=== PATIENT | male | born 1960 | race African-American/Black ===

== ENCOUNTER 2017-07-08 15:12 | Inpatient (IN) | payer MEDICARE, MEDICAID ==
[~2017-07-08] VITALS: Ht 167.6 cm; Wt 71.7 kg
[2017-07-08] MEDS ORDERED: IV NORMAL SALINE 1000 ML BAG IV ONE (15:30)
--- NOTE | 2017-07-08 15:40 | NUR ---
PT IS IN ROOM #2B. DR CÁRDENAS EVALUATED THE PT.
[2017-07-08 15:58] LABS: BASOPHILS % (AUTO) 0.2 % (0.0-2.0); EOSINOPHILS % (AUTO) 0.2 % (0.0-7.0); HEMATOCRIT 34.4 % (36.7-47.1); HEMOGLOBIN 11.2 g/dL (12.5-16.3); LYMPHOCYTES # (AUTO) 0.5 K/uL (20.0-40.0); LYMPHOCYTES % (AUTO) 3.5 % (20.5-51.5); MEAN CORPUSCULAR HEMOGLOBIN 31.3 uug (23.8-33.4); MEAN CORPUSCULAR HGB CONC 33 g/dL (32.5-36.3); MEAN CORPUSCULAR VOLUME 95.9 fL (73.0-96.2); MONOCYTES % (AUTO) 7.8 % (0.0-11.0); NEUTROPHILS # (AUTO) 11.3 K/uL (1.8-8.9); NEUTROPHILS % (AUTO) 88.3 % (38.5-71.5); PLATELET COUNT (AUTO) 197 K/uL (152-348); RED BLOOD CELL COUNT(AUTO) 3.59 MIL/uL (4.06-5.63); WHITE BLOOD COUNT (AUTO) 12.8 K/uL (3.6-10.2)
[2017-07-08 16:00] LABS: POTASSIUM 4.8 mmol/L (3.5-5.1)
[2017-07-08 16:06] LABS: CREATININE 9.8 mg/dL (0.6-1.3)
[2017-07-08 16:10] LABS: BILIRUBIN,DIRECT 0.1 mg/dL (0.0-0.2); BILIRUBIN,TOTAL 0.5 mg/dL (0.1-1.0)
[2017-07-08 16:11] LABS: TOTAL PROTEIN, SERUM 7.6 g/dL (6.4-8.2)
[2017-07-08] MEDS ORDERED: GLIP5TAB13 PO (16:29)
[2017-07-08] MEDS ORDERED: ASPI-605 PO (16:29)
[2017-07-08] MEDS ORDERED: FOLI0.8T23 PO (16:29)
[2017-07-08] MEDS ORDERED: SEVE800T8 PO (16:29)
[2017-07-08] MEDS ORDERED: FOLI1TAB16 PO (16:29)
[2017-07-08] MEDS ORDERED: SIMV20TA6 PO (16:29)
[2017-07-08] MEDS ORDERED: DOXA1TAB2 PO (16:29)
[2017-07-08] MEDS ORDERED: HYDR-4077 PO (16:29)
[2017-07-08] MEDS ORDERED: TAMS0.4C34 PO (16:29)
--- NOTE | 2017-07-08 19:09 | NUR ---
REPORT GIVEN TO EXAMINING OFFICER YOLANDA ANDRADE.
--- NOTE | 2017-07-08 19:40 | NUR ---
Passed report to Bruno GUERREROlinotyper.
--- NOTE | 2017-07-08 20:00 | NUR ---
ADMITTED PATIENT IN TELE UNIT UNDER THE CARE OF DR. HERNANDEZ, BELONGING LIST DONE.
[2017-07-08] MEDS ORDERED: MORPHINE SULFATE 2 MG/1 ML DISP.SYRIN IM PRN (20:30)
[2017-07-08 20:42] VITALS: BP 187/89
[2017-07-08] MEDS ORDERED: HYDROCODONE/APAP 5-325MG TABLET PO PRN (23:30)
[2017-07-08] MEDS ORDERED: TEMAZEPAM 15 MG CAPSULE PO PRN (23:30)
[2017-07-08] MEDS ORDERED: ACETAMINOPHEN 325 MG TABLET PO PRN (23:30)
[2017-07-08] MEDS ORDERED: ONDANSETRON 4 MG/2 ML VIAL IV PRN (23:30)
[2017-07-08] MEDS: CLONIDINE HCL 0.1 MG TABLET PO PRN (23:55)
--- NOTE | 2017-07-08 23:56 | NUR ---
PATIENT BP ELEVATED 179/88, NOTIFY DR. RAY WITH ORDER, PATIENT HAS RAVEN COLOR DARK BROWN IN COLOR, PATIENT DRY SKIN, PROVIDED LOTION TO APPLY TO SKIN.
[2017-07-09 00:06] VITALS: BP 179/88
[2017-07-09 00:40] VITALS: BP 154/67
--- NOTE | 2017-07-09 00:43 | NUR ---
PATIENT BP RECHECK BP 154/67, CATAPRES EFFECTIVE.
[2017-07-09 04:00] VITALS: BP 169/62
--- NOTE | 2017-07-09 05:26 | NUR ---
PATIENT SLEPT MOST OF THE NIGHT, NO SOB NO CHEST PAIN, NO COMPLAIN OF PAIN AT THIS TIME, PATIENT HAS NO FURTHER EPISODES OF BLOODY BM AT THIS TIME. CONT TO MONITOR, RYTHM SINUS RYTHM AT THIS TIME.
[2017-07-09] MEDS: PANTOPRAZOLE SODIUM 40 MG TABLET.DR PO SCH (06:02)
[2017-07-09] MEDS: CLONIDINE HCL 0.1 MG TABLET PO PRN (06:03)
--- NOTE | 2017-07-09 07:05 | NUR ---
RECEIVED REPORT FROM CENTER HUMAN RESOURCES MANAGER NURSE, PATIENT IN BED AWAKE, NO DISTRESS NOTED AT THIS TIME, BED IN LOW POSITION, SIDE RAILS UP X2.
[2017-07-09] MEDS ORDERED: TEMAZEPAM 7.5 MG CAPSULE PO PRN (07:15)
[2017-07-09 07:41] LABS: IRON, SERUM 20 ug/dL (50-175)
[2017-07-09 07:48] LABS: ALANINE AMINOTRANSFERASE 18 U/L (16-63); ALKALINE PHOSPHATASE 57 U/L (50-136); ASPARTATE AMINOTRANSFERASE 8 U/L (15-37); BILIRUBIN,TOTAL 0.4 mg/dL (0.2-1.0); CARBON DIOXIDE 29 mmol/L (21-32); CHLORIDE 103 mmol/L (98-107); CHOLESTEROL 112 mg/dL (<200); GLUCOSE 115 mg/dL (74-106); HDL CHOLESTEROL 45 mg/dL (40-60); MAGNESIUM 2.3 mg/dL (1.8-2.4); PHOSPHOROUS 4.8 mg/dL (2.5-4.9); POTASSIUM 5.4 mmol/L (3.5-5.1); TOTAL PROTEIN, SERUM 6.4 g/dL (6.4-8.2); TRIGLYCERIDES 34 MG/DL (30-150); UREA NITROGEN, BLOOD 61 mg/dL (7-18)
[2017-07-09 07:56] LABS: THYROID STIMULATING HORMONE 1.001 mIU/mL (0.358-3.740)
[2017-07-09 08:01] LABS: BASOPHILS # (AUTO) 0.1 K/uL (0.0-8.0); BASOPHILS % (AUTO) 0.9 % (0.0-2.0); EOSINOPHILS % (AUTO) 0.6 % (0.0-7.0); LYMPHOCYTES # (AUTO) 0.6 K/uL (20.0-40.0); LYMPHOCYTES % (AUTO) 7.9 % (20.5-51.5); MEAN CORPUSCULAR HEMOGLOBIN 32.2 uug (23.8-33.4); MEAN CORPUSCULAR HGB CONC 33 g/dL (32.5-36.3); MEAN CORPUSCULAR VOLUME 96.7 fL (73.0-96.2); MONOCYTES # (AUTO) 0.7 K/uL (2.0-10.0); MONOCYTES % (AUTO) 8.5 % (0.0-11.0); NEUTROPHILS # (AUTO) 6.4 K/uL (1.8-8.9); NEUTROPHILS % (AUTO) 82.1 % (38.5-71.5); PLATELET COUNT (AUTO) 153 K/uL (152-348); RED BLOOD CELL COUNT(AUTO) 3.02 MIL/uL (4.06-5.63)
[2017-07-09 08:04] LABS: HEMATOCRIT 29.2 % (36.7-47.1); HEMOGLOBIN 9.7 g/dL (12.5-16.3); WHITE BLOOD COUNT (AUTO) 7.7 K/uL (3.6-10.2)
[2017-07-09 08:05] LABS: CREATININE 11.2 mg/dL (0.6-1.3)
[2017-07-09] MEDS: SEVELAMER CARBONATE 800 MG TABLET PO SCH ×3 (08:40→17:01)
[2017-07-09] MEDS: FOLIC ACID/VITAMIN B COMP W-C TABLET PO SCH (08:40)
[2017-07-09] MEDS: hydrALAZINE HCL 50 MG TABLET PO SCH ×3 (08:41→16:53)
[2017-07-09] MEDS: DOXAZOSIN 1 MG TABLET PO SCH (08:41)
[2017-07-09] MEDS ORDERED: FOLIC ACID 1 MG TABLET PO SCH (09:00)
[2017-07-09 11:30] VITALS: BP 133/65
[2017-07-09] MEDS ORDERED: DEXTROSE 50% 50 ML DISP.SYRIN IV PRN (12:15)
[2017-07-09] MEDS: BLOOD SUGAR DIAGNOSTIC 1 EACH STRIP VI SCH ×3 (12:17→21:23)
[2017-07-09] MEDS: INSULIN REGULAR, HUMAN 300 UNIT/3 ML VIAL SQ PRN ×2 (12:44→17:07)
[2017-07-09] MEDS ORDERED: GOLYTELY 4000 ML BOTTLE PO ONE (13:00)
[2017-07-09] MEDS ORDERED: MAGNESIUM CITRATE 296 ML BOTTLE PO ONE (13:00)
[2017-07-09] MEDS ORDERED: FLEET ENEMA 133 ML BOTTLE RC PRN (13:00)
--- NOTE | 2017-07-09 14:24 | NUR ---
Patient has been cooperative with care, received dialysis today with 2.5L removed. Patient gave consent for procedures tomorrow at 10am. Patient started the bowel prep with magnesium citrate. Currently patient in bed awake, no distress noted at this time, bed in low position, side rails up x2.
[2017-07-09 15:02] LABS: HEMATOCRIT 31.9 % (36.7-47.1)
--- NOTE | 2017-07-09 15:08 | NUR ---
RECEIVED HAD OFF REPORT FROM SHARIFA GUERRERO. PATIENT IN ROOM, NO ACUTE DISTRESS NOTED. FOR EGD TOMORROW MORNING, BOWEL PREP ONGOING. CONSENT SIGNED WILL CONTINUE TO MONITOR CLOSELY.
[2017-07-09 15:13] LABS: HEMOGLOBIN 10.5 g/dL (12.5-16.3)
[2017-07-09 15:20] VITALS: BP 167/76
[2017-07-09 15:56] LABS: *OCCULT BLOOD STOOL NEGATIVE (NEGATIVE)
--- NOTE | 2017-07-09 17:55 | NUR ---
REMOVED IV SITE ON RIGHT HAND PER PATIENT'S REQUEST SINCE HE SAID THAT IT'S A HINDRANCE WHEN USING THE BATHROOM AND BECOMES UNSANITARY BECAUSE THE CATHETER IS SO CLOSE TO THE EDGE OF THE PALM WHEN HE WASHES HIMSELF. REINSERTED IV ACCESS ON THE RIGHT FOREARM #22, USING ASEPTIC TECHNIQUE, GOOD VENOUS RETURN NOTED, AND WELL TOLERATED BY PATIENT. WILL CONTINUE TO MONITOR CLOSELY.
[2017-07-09 20:00] VITALS: BP 129/62
[2017-07-09] MEDS: SIMVASTATIN 20 MG TABLET PO SCH (21:16)
[2017-07-09] MEDS: TAMSULOSIN HCL 0.4 MG CAP.SR.24H PO SCH (21:17)
[2017-07-10] VITALS: BP 162/77
[2017-07-10 04:00] VITALS: BP 168/80
[2017-07-10] MEDS: BLOOD SUGAR DIAGNOSTIC 1 EACH STRIP VI SCH ×4 (05:53→20:27)
[2017-07-10] MEDS: PANTOPRAZOLE SODIUM 40 MG TABLET.DR PO SCH (05:54)
[2017-07-10] MEDS: CLONIDINE HCL 0.1 MG TABLET PO PRN (06:47)
--- NOTE | 2017-07-10 07:00 | NUR ---
RECEIVED REPORT FROM COLLECTIONS ASSISTANT, PATIENT ON BED ASLEEP, NO ACUTE DISTRESS NOTED. FOR EGD AND COLONOSCOPY TODAY AT 10 AM, CONSENT SIGNED, PRE OP CHECKLIST DONE. PATIENT DONE WITH BOWEL PREP AND IS CLEAR FOR PROCEDURE AND NPO S/P MIDNIGHT. PER [place] RN, PATIENT HAD AN EPISODE OF HYPOGLYCEMIA LAST NIGHT BLOOD SUGAR WAS 63, PATIENT WAS GIVEN HARD CANDY, REASSESSED AFTER BLOOD SUGAR WENT UP TO 98. COMFORT MEASURES PROVIDED. NO COMPLAINTS OF PAIN AND DISCOMFORT. CALL LIGHT WITHIN REACH WILL CONTINUE TO MONITOR CLOSELY.
[2017-07-10 07:19] LABS: HEMATOCRIT 30.2 % (36.7-47.1); HEMOGLOBIN 10.1 g/dL (12.5-16.3)
[2017-07-10] MEDS ORDERED: PROPOFOL 200 MG/20 ML BOTTLE IV ONE (07:29)
[2017-07-10] MEDS ORDERED: IV NORMAL SALINE 1000 ML BAG IV ONE (07:29)
[2017-07-10] MEDS: SEVELAMER CARBONATE 800 MG TABLET PO SCH ×4 (08:00→17:18)
[2017-07-10] MEDS: hydrALAZINE HCL 50 MG TABLET PO SCH ×3 (08:27→16:18)
[2017-07-10] MEDS: FOLIC ACID/VITAMIN B COMP W-C TABLET PO SCH (08:29)
[2017-07-10] MEDS: DOXAZOSIN 1 MG TABLET PO SCH (08:29)
--- NOTE | 2017-07-10 10:20 | NUR ---
PATIENT TAKEN DOWN TO GI LAB FOR EGD/COLONOSCOPY PROCEDURE VIA BED ACCOMPANIED BY OR NURSE. PATIENT IN STABLE CONDITION. CONSENT SIGNED.
[2017-07-10 12:18] VITALS: BP 147/70
--- NOTE | 2017-07-10 12:20 | NUR ---
PATIENT CAME BACK FROM GI LAB, S/P EGD AND COLONOSCOPY. EGD FINDINGS: GASTRITIS AND HIATAL HERNIA COLONOSCOPY FINDINGS:POLYPS. W/ ORDERS TO CONTINUE RENAL DIET, CARRIED OUT. VITALS WNL BP 142/70. WILL CONTINUE TO MONITOR.
[2017-07-10] MEDS: VALSARTAN 160 MG TABLET PO SCH (12:33)
[2017-07-10 15:40] VITALS: BP 130/50
[2017-07-10] MEDS: INSULIN REGULAR, HUMAN 300 UNIT/3 ML VIAL SQ PRN (16:17)
--- NOTE | 2017-07-10 18:19 | NUR ---
PATIENT IN ROOM, NO ACUTE DISTRESS NOTED. NO COMPLAINTS OF PAIN AND DISCOMFORT AT THIS TIME. INDEPENDENT WITH ADLS. COMFORT MEASURES PROVIDED. ALL NEEDS ATTENDED AND ANTICIPATED. CALL LIGHT WITHIN REACH. WILL CONTINUE TO MONITOR CLOSELY
[2017-07-10 20:00] VITALS: BP 134/68
--- NOTE | 2017-07-10 20:00 | NUR ---
PATIENT IS AWAKE SEATED BY THE BED SIDE, HE'S AAOX3. HE DENIES PAIN OR ANY DISTRESS, NO C/O OF DIZZINESS, NO S/S OF BLEEDING OR SOB ON ASSESSMENT. NO CONCERNS AT THIS TIME, WILL CONTINUE TO MONITOR PATIENT
[2017-07-10] MEDS: TAMSULOSIN HCL 0.4 MG CAP.SR.24H PO SCH (20:22)
[2017-07-10] MEDS: SIMVASTATIN 20 MG TABLET PO SCH (20:22)
[2017-07-11 04:00] VITALS: BP 164/78
[2017-07-11] MEDS: CLONIDINE HCL 0.1 MG TABLET PO PRN (05:33)
--- NOTE | 2017-07-11 06:01 | NUR ---
PATIENT SLEPT WELL THROUGH THE SHIFT, HE DENIED PAIN OR ANY DISTRESS. NO C/O OF DIZZINESS/SOB OR ANY EVIDENCE OF BLEEDING NOTED ON THIS SHIFT. PATIENT IN STABLE CONDITION WITH NO CONCERNS AT THIS TIME
[2017-07-11] MEDS: PANTOPRAZOLE SODIUM 40 MG TABLET.DR PO SCH (06:36)
[2017-07-11] MEDS: BLOOD SUGAR DIAGNOSTIC 1 EACH STRIP VI SCH ×4 (06:40→21:33)
--- NOTE | 2017-07-11 07:00 | NUR ---
RECEIVED REPORT FROM MANAGER CARE MANAGEMENT NURSE. PATIENT IN ROOM, AWAKE. NO ACUTE DISTRESS NOTED. IV ACCESS ON RIGHT FOREARM #22 INTACT AND PATENT. LAST BLOOD SUGAR 84, NO COVERAGE NEEDED. TOOK A SHOWER LAST NIGHT. PER MANAGER CARE MANAGEMENT PATIENT HAD ELEVATED BLOOD PRESSURE, CLONIDINE PRN WAS GIVEN. VITAL SIGNS STABLE. COMFORT MEASURES PROVIDED. CALL LIGHT WITHIN REACH WILL CONTINUE TO MONITOR.
[2017-07-11] MEDS: SEVELAMER CARBONATE 800 MG TABLET PO SCH ×3 (07:57→18:06)
[2017-07-11] MEDS: FOLIC ACID/VITAMIN B COMP W-C TABLET PO SCH (08:00)
[2017-07-11] MEDS: VALSARTAN 160 MG TABLET PO SCH (08:00)
[2017-07-11] MEDS: hydrALAZINE HCL 50 MG TABLET PO SCH ×3 (08:01→17:00)
[2017-07-11] MEDS: DOXAZOSIN 1 MG TABLET PO SCH (08:01)
[2017-07-11] MEDS: INSULIN REGULAR, HUMAN 300 UNIT/3 ML VIAL SQ PRN ×2 (11:17→16:46)
[2017-07-11 11:50] VITALS: BP 104/62
[2017-07-11 16:02] VITALS: BP 116/59
--- NOTE | 2017-07-11 17:54 | NUR ---
DID NOT ADMINISTER HYDRALAZINE SINCE PATIENT WILL BE DIALYZED LATER TONIGHT. BP 124/65. WILL CONTINUE TO MONITOR.
--- NOTE | 2017-07-11 18:55 | NUR ---
PATIENT IN STABLE CONDITION NO ACUTE DISTRESS NOTED. DIALYSIS CURRENTLY ONGOING, SENIOR TECHNICAL RECRUITER AT BEDSIDE. NO COMPLAINTS OF PAIN AND DISCOMFORT AT THIS TIME. VITAL SIGNS WNL. ALL NEEDS ATTENDED AND ANTICIPATED. CALL LIGHT WIHTIN REACH WILL CONTINUE TO MONITOR CLOSELY.
--- NOTE | 2017-07-11 19:45 | NUR ---
PT OBSERVED TO BE AAO X 4 AND RECEIVING DIALYSIS AT THIS TIME. NO S/S OF ACUTE DISTRESS NOTED AT THIS TIME. BP WNL. SAFETY PRECAUTIONS PROVIDED. CALL LIGHT WITHIN REACH. WILL CONTINUE TO MONITOR.
[2017-07-11 20:00] VITALS: BP 122/62
[2017-07-11] MEDS: SIMVASTATIN 20 MG TABLET PO SCH (21:33)
[2017-07-11] MEDS: TAMSULOSIN HCL 0.4 MG CAP.SR.24H PO SCH (21:33)
[2017-07-12 05:06] VITALS: BP 133/65
[2017-07-12] MEDS: PANTOPRAZOLE SODIUM 40 MG TABLET.DR PO SCH (06:30)
--- NOTE | 2017-07-12 06:30 | NUR ---
NO DISTRESS NOTED AT THIS TIME. PAIN MANAGEMENT PROVIDED. VITAL SIGNS WNL. SAFETY MEASURES PROVIDED.
[2017-07-12] MEDS: BLOOD SUGAR DIAGNOSTIC 1 EACH STRIP VI SCH ×3 (06:36→16:30)
[2017-07-12 06:48] LABS: BASOPHILS # (AUTO) 0.1 K/uL (0.0-8.0); BASOPHILS % (AUTO) 0.9 % (0.0-2.0); EOSINOPHILS # (AUTO) 0.1 K/uL (0.0-0.7); EOSINOPHILS % (AUTO) 1.4 % (0.0-7.0); HEMATOCRIT 27.7 % (36.7-47.1); HEMOGLOBIN 9.4 g/dL (12.5-16.3); LYMPHOCYTES # (AUTO) 0.5 K/uL (20.0-40.0); LYMPHOCYTES % (AUTO) 8.4 % (20.5-51.5); MEAN CORPUSCULAR HGB CONC 34 g/dL (32.5-36.3); MEAN CORPUSCULAR VOLUME 94.4 fL (73.0-96.2); MONOCYTES # (AUTO) 0.6 K/uL (2.0-10.0); MONOCYTES % (AUTO) 10.1 % (0.0-11.0); NEUTROPHILS # (AUTO) 4.6 K/uL (1.8-8.9); NEUTROPHILS % (AUTO) 79.2 % (38.5-71.5); PLATELET COUNT (AUTO) 152 K/uL (152-348); RED BLOOD CELL COUNT(AUTO) 2.93 MIL/uL (4.06-5.63); WHITE BLOOD COUNT (AUTO) 5.9 K/uL (3.6-10.2)
[2017-07-12 07:04] LABS: BILIRUBIN,TOTAL 0.4 mg/dL (0.2-1.0); MAGNESIUM 2.1 mg/dL (1.8-2.4); PHOSPHOROUS 3.6 mg/dL (2.5-4.9)
[2017-07-12 07:08] LABS: CREATININE 8.3 mg/dL (0.6-1.3)
[2017-07-12] MEDS ORDERED: SIMETHICONE 40 MG/0.6 ML 30 ML BOTTLE MC ONE (07:30)
[2017-07-12] MEDS: SEVELAMER CARBONATE 800 MG TABLET PO SCH ×2 (08:39→13:15)
[2017-07-12] MEDS: DOXAZOSIN 1 MG TABLET PO SCH (08:40)
[2017-07-12] MEDS: hydrALAZINE HCL 50 MG TABLET PO SCH ×3 (08:40→17:00)
[2017-07-12] MEDS: FOLIC ACID/VITAMIN B COMP W-C TABLET PO SCH (08:41)
[2017-07-12] MEDS: VALSARTAN 160 MG TABLET PO SCH (08:41)
[2017-07-12 11:44] VITALS: BP 158/72
[2017-07-12] MEDS ORDERED: PANT40TA2 PO (13:58)
[2017-07-12] MEDS ORDERED: CLON0.1T14 PO (13:58)
[2017-07-12] MEDS ORDERED: VALS160T2 PO (13:58)
[2017-07-12] MEDS ORDERED: ACET325T53 PO (13:58)
[2017-07-12] MEDS ORDERED: TEMA7.5C PO (13:58)
[2017-07-12] MEDS ORDERED: TAMS-3 PO (13:58)
[2017-07-12] MEDS ORDERED: HYDR-3326 PO (13:58)
[2017-07-12] MEDS ORDERED: FERR325T28 PO (14:15)
[2017-07-12 15:47] VITALS: BP 123/63
== END 2017-07-12 18:00 | DRG 393 ==
LOC: ER 15:14 → TELE 17:40 → MED 07-10 17:36
PROVIDERS: ADMIT Internal Medicine; ATTEND Internal Medicine
PROC: 5A1D70Z Performance of Urinary Filtration, Intermittent, Less than 6 Hours Per Day (ICD-10-PCS; 2017-07-09)
PROC: 0DB68ZX Excision of Stomach, Via Natural or Artificial Opening Endoscopic, Diagnostic (ICD-10-PCS; 2017-07-10)
PROC: 0DBK8ZZ Excision of Ascending Colon, Via Natural or Artificial Opening Endoscopic (ICD-10-PCS; principal; 2017-07-10 10:35)
PROC: 0DB58ZX Excision of Esophagus, Via Natural or Artificial Opening Endoscopic, Diagnostic (ICD-10-PCS; 2017-07-10 10:35)
DX: K64.1 Second degree hemorrhoids (principal); N18.6 End stage renal disease; Z76.82 Awaiting organ transplant status; E11.22 Type 2 diabetes mellitus with diabetic chronic kidney disease; D62 Acute posthemorrhagic anemia; E44.1 Mild protein-calorie malnutrition; E83.52 Hypercalcemia; I12.0 Hypertensive chronic kidney disease with stage 5 chronic kidney disease or end stage renal disease; E87.5 Hyperkalemia; K29.70 Gastritis, unspecified, without bleeding; K44.9 Diaphragmatic hernia without obstruction or gangrene; K22.70 Barrett's esophagus without dysplasia; Z99.2 Dependence on renal dialysis; Z79.82 Long term (current) use of aspirin; K57.30 Diverticulosis of large intestine without perforation or abscess without bleeding; N40.0 Benign prostatic hyperplasia without lower urinary tract symptoms; Z79.84 Long term (current) use of oral hypoglycemic drugs; E78.5 Hyperlipidemia, unspecified; Z68.25 Body mass index [BMI] 25.0-25.9, adult; D63.8 Anemia in other chronic diseases classified elsewhere; R53.1 Weakness
CPT/HCPCS: 36415; 70030-TC; 71045; 83550; 83735; 84100; 84443; 85018; 85025; 85730; 86850; 86900; 86901; 88342; 90937; 93005; 93307; A4217; A4663; J1815; J2270; J2405; J3490; J7030

== ENCOUNTER 2018-05-10 23:23 | Inpatient (IN) | payer MEDICARE, MEDICAID ==
[~2018-05-10] VITALS: Ht 167.6 cm; Wt 63.0 kg
[~2018-05-10 23:23] MED LIST: ACET325T53 PO; ASPI-605 PO; CLON0.1T14 PO; DOXA1TAB2 PO; FERR325T28 PO; FOLI0.8T23 PO; FOLI1TAB16 PO; GLIP5TAB13 PO; HYDR-3326 PO; HYDR-4077 PO; PANT40TA2 PO; SEVE800T8 PO; SIMV20TA6 PO; TAMS-3 PO; TEMA7.5C PO; VALS160T2 PO
[2018-05-10] MEDS ORDERED: IV NORMAL SALINE 500 ML BAG IV ONE (23:30)
[2018-05-10 23:38] LABS: BASOPHILS % (AUTO) 0.7 % (0.0-2.0); EOSINOPHILS % (AUTO) 0.3 % (0.0-7.0); HEMATOCRIT 37.7 % (36.7-47.1); HEMOGLOBIN 12.1 g/dL (12.5-16.3); LYMPHOCYTES % (AUTO) 1.8 % (20.5-51.5); MEAN CORPUSCULAR HEMOGLOBIN 30.8 uug (23.8-33.4); MEAN CORPUSCULAR HGB CONC 32 g/dL (32.5-36.3); MEAN CORPUSCULAR VOLUME 95.6 fL (73.0-96.2); MONOCYTES % (AUTO) 9.2 % (0.0-11.0); PLATELET COUNT (AUTO) 170 K/uL (152-348); RED BLOOD CELL COUNT(AUTO) 3.94 MIL/uL (4.06-5.63); WHITE BLOOD COUNT (AUTO) 8.7 K/uL (3.6-10.2)
--- NOTE | 2018-05-10 23:38 | NUR ---
Patient BIB RA100 for c/o BLE weakness /generalized weakness/fatigue x 1 day. No CP/SOB/N/V/D. Patient is AAOx4. Noted with dialysis access to L upper arm.
[2018-05-10 23:39] LABS: BASOPHILS # (AUTO) 0.1 K/uL (0.0-8.0); LYMPHOCYTES # (AUTO) 0.2 K/uL (20.0-40.0); MONOCYTES # (AUTO) 0.8 K/uL (2.0-10.0); NEUTROPHILS # (AUTO) 7.6 K/uL (1.8-8.9)
[2018-05-10] MEDS ORDERED: GABA-532 PO (23:42)
[2018-05-10] MEDS ORDERED: SITA50TA PO (23:42)
[2018-05-10] MEDS ORDERED: HYDR-4077 PO (23:42)
[2018-05-10 23:49] LABS: POTASSIUM 5.6 mmol/L (3.5-5.1)
[2018-05-10 23:50] LABS: CREATININE 11.2 mg/dL (0.6-1.3)
[2018-05-11 00:02] LABS: BILIRUBIN,DIRECT 0.6 mg/dL (0.0-0.2); BILIRUBIN,TOTAL 1.1 mg/dL (0.2-1.0); TOTAL PROTEIN, SERUM 7.8 g/dL (6.4-8.2)
--- NOTE | 2018-05-11 00:38 | NUR ---
2nd Panel call placed to [employer]. Pending call back at this time.
--- NOTE | 2018-05-11 00:47 | NUR ---
Report given to Jeni GUERRERO on Telemetry
--- NOTE | 2018-05-11 00:58 | NUR ---
Pt. admitted to Telemetry , under care of Yeyo Jacob DNP. Belongs List completed
[2018-05-11 01:00] VITALS: BP 128/68
--- NOTE | 2018-05-11 01:10 | NUR ---
Admitted a 58 years old male with diagnosis fo ESRD. Patient AAOX4. In no acute distress. O2 saturation at 80% on RA during admit but denies any SOB. O2 at 2LPM via NC placed and O2 saturation went up to 96%. Denies any pain at this time. IV site on right FA intact and patent. AV shunt on left upper arm/ Patient reported last dialysis done at [facility] in [place] last Friday and took about 1L. NSR on tele at 80/min. Routine admission care done. Plan of care initiated. Safety measure initiated and call sheldon within reach.
[2018-05-11] MEDS ORDERED: Z GUARD REMEDY PASTE 57 GM TUBE TOP PRN ×2 (01:15→10:45)
[2018-05-11] MEDS ORDERED: ACETAMINOPHEN 325 MG TABLET PO PRN (01:15)
[2018-05-11] MEDS: ONDANSETRON 4 MG/2 ML VIAL IV PRN ×3 (01:27→14:55)
[2018-05-11 04:00] VITALS: BP 143/71
--- NOTE | 2018-05-11 06:14 | NUR ---
AAOX4. In no acute distress. O2 at 2LPM via NC placed. Denies any pain or SOB. IV site on right FA intact and patent. NSR on tele at 77/min. No further vomiting reported. Safety measure maintained and call sheldon within reach.
--- NOTE | 2018-05-11 08:30 | NUR ---
SBAR report receive,pt.A/A/OX4 no s/s of distress,denies any pain @ time.
[2018-05-11] MEDS: SEVELAMER CARBONATE 800 MG TABLET PO SCH ×3 (08:48→17:25)
[2018-05-11] MEDS: ASPIRIN EC 81 MG TABLET.DR PO SCH (08:49)
[2018-05-11] MEDS: GABAPENTIN 100 MG CAPSULE PO SCH ×2 (08:49→17:25)
[2018-05-11] MEDS: FOLIC ACID/VITAMIN B COMP W-C TABLET PO SCH (08:49)
[2018-05-11] MEDS: FOLIC ACID 1 MG TABLET PO SCH (08:49)
[2018-05-11] MEDS: hydrALAZINE HCL 50 MG TABLET PO SCH (08:52)
[2018-05-11] MEDS: DOXAZOSIN 1 MG TABLET PO SCH (08:56)
--- NOTE | 2018-05-11 10:05 | NUR ---
Pt. stated that has Hx of IBS- was reported to , pt had 2 liq.bm
[2018-05-11] MEDS ORDERED: ELUX75TA PO (10:21)
[2018-05-11 11:20] VITALS: BP 129/62
--- NOTE | 2018-05-11 14:00 | NUR ---
T.SLEEPING, NO S/S OF DISTRESS.
[2018-05-11 15:20] VITALS: BP 144/64
--- NOTE | 2018-05-11 17:00 | NUR ---
PT.WAS SEEN BY WITH NEW ORDERS.
[2018-05-11 19:00] VITALS: BP 107/49
--- NOTE | 2018-05-11 19:30 | NUR ---
RECEIVED PATIENT IN BED. ALERT AND ORIENTED. PATIENT IS GOING TO RECEIVE DIALYSIS. NO COMPLAINTS OF PAIN. SAFETY MEASURES INITIATED. BED IS LOW AND LOCKED, CALL LIGHT WITHIN REACH. WILL CONTINUE TO MONITOR.
[2018-05-11] MEDS ORDERED: SIMVASTATIN 20 MG TABLET PO SCH (21:00)
[2018-05-11] MEDS: TAMSULOSIN HCL 0.4 MG CAP.SR.24H PO SCH (23:39)
[2018-05-11] MEDS: Z GUARD REMEDY PASTE 57 GM TUBE TOP SCH (23:39)
--- NOTE | 2018-05-11 23:45 | NUR ---
PATIENT COMPLETED DIALYSIS AND HAD AN OUTPUT OF 500cc. WILL CONTINUE TO MONITOR.
[2018-05-12] VITALS: BP 138/67
[2018-05-12 04:00] VITALS: BP 131/56
[2018-05-12 06:33] LABS: BASOPHILS % (AUTO) 0.7 % (0.0-2.0); EOSINOPHILS # (AUTO) 0.4 K/uL (0.0-0.7); EOSINOPHILS % (AUTO) 5.3 % (0.0-7.0); HEMATOCRIT 35.4 % (36.7-47.1); HEMOGLOBIN 11.6 g/dL (12.5-16.3); LYMPHOCYTES # (AUTO) 0.3 K/uL (20.0-40.0); LYMPHOCYTES % (AUTO) 3.8 % (20.5-51.5); MEAN CORPUSCULAR HEMOGLOBIN 31.1 uug (23.8-33.4); MEAN CORPUSCULAR HGB CONC 33 g/dL (32.5-36.3); MEAN CORPUSCULAR VOLUME 95.1 fL (73.0-96.2); MONOCYTES # (AUTO) 0.9 K/uL (2.0-10.0); MONOCYTES % (AUTO) 12.9 % (0.0-11.0); NEUTROPHILS # (AUTO) 5.3 K/uL (1.8-8.9); NEUTROPHILS % (AUTO) 77.3 % (38.5-71.5); PLATELET COUNT (AUTO) 164 K/uL (152-348); RED BLOOD CELL COUNT(AUTO) 3.72 MIL/uL (4.06-5.63); WHITE BLOOD COUNT (AUTO) 6.8 K/uL (3.6-10.2)
[2018-05-12 06:54] LABS: MAGNESIUM 2.2 mg/dL (1.8-2.4); POTASSIUM 4.4 mmol/L (3.5-5.1)
[2018-05-12 06:57] LABS: CREATININE 8.4 mg/dL (0.6-1.3)
[2018-05-12] MEDS: FOLIC ACID/VITAMIN B COMP W-C TABLET PO SCH (08:51)
[2018-05-12] MEDS: FOLIC ACID 1 MG TABLET PO SCH (08:52)
[2018-05-12] MEDS: ASPIRIN EC 81 MG TABLET.DR PO SCH (08:52)
[2018-05-12] MEDS: DOXAZOSIN 1 MG TABLET PO SCH (08:52)
[2018-05-12] MEDS: hydrALAZINE HCL 50 MG TABLET PO SCH (08:52)
[2018-05-12] MEDS: SEVELAMER CARBONATE 800 MG TABLET PO SCH ×3 (08:52→18:04)
[2018-05-12] MEDS: GABAPENTIN 100 MG CAPSULE PO SCH ×2 (08:52→18:05)
[2018-05-12] MEDS: Z GUARD REMEDY PASTE 57 GM TUBE TOP SCH ×2 (08:53→21:31)
--- NOTE | 2018-05-12 10:00 | NUR ---
Pt remains awake,alert,oriented.Denies pain,discomfort.Will continue to monitor.
[2018-05-12 11:26] VITALS: BP 119/51
[2018-05-12] MEDS: METRONIDAZOLE 500 MG/NS 100ML 500 MG in PREMIXED 1 EACH IV SCH ×2 (14:55→21:25)
[2018-05-12 15:30] VITALS: BP 133/59
[2018-05-12 19:22] VITALS: BP 162/76
--- NOTE | 2018-05-12 19:30 | NUR ---
nsg: pt received awake, alert, no acute distress noted. denies discomfort. on contact isolation for possible cdiff. av shunt present on left upper arm. on bedrest. cont to monitor.
[2018-05-12] MEDS: TAMSULOSIN HCL 0.4 MG CAP.SR.24H PO SCH (21:25)
[2018-05-12 21:32] VITALS: BP 145/75
[2018-05-12 22:48] LABS: *OCCULT BLOOD STOOL POSITIVE (NEGATIVE)
[2018-05-13 03:24] VITALS: BP 173/79
--- NOTE | 2018-05-13 05:15 | NUR ---
nsg: no change in condition. all needs attended. no episode of diarrhea. cont to monitor.
[2018-05-13] MEDS: METRONIDAZOLE 500 MG/NS 100ML 500 MG in PREMIXED 1 EACH IV SCH ×3 (05:36→21:12)
[2018-05-13 07:27] LABS: BASOPHILS # (AUTO) 0.1 K/uL (0.0-8.0); BASOPHILS % (AUTO) 0.7 % (0.0-2.0); EOSINOPHILS # (AUTO) 0.4 K/uL (0.0-0.7); EOSINOPHILS % (AUTO) 4.8 % (0.0-7.0); HEMATOCRIT 34.9 % (36.7-47.1); HEMOGLOBIN 11.5 g/dL (12.5-16.3); LYMPHOCYTES # (AUTO) 0.3 K/uL (20.0-40.0); MEAN CORPUSCULAR HEMOGLOBIN 31.3 uug (23.8-33.4); MEAN CORPUSCULAR HGB CONC 33 g/dL (32.5-36.3); MONOCYTES # (AUTO) 1.1 K/uL (2.0-10.0); MONOCYTES % (AUTO) 13.9 % (0.0-11.0); NEUTROPHILS # (AUTO) 6.2 K/uL (1.8-8.9); NEUTROPHILS % (AUTO) 76.6 % (38.5-71.5); PLATELET COUNT (AUTO) 162 K/uL (152-348); RED BLOOD CELL COUNT(AUTO) 3.67 MIL/uL (4.06-5.63); WHITE BLOOD COUNT (AUTO) 8.1 K/uL (3.6-10.2)
[2018-05-13 08:03] LABS: PHOSPHOROUS 6.2 mg/dL (2.5-4.9); POTASSIUM 4.8 mmol/L (3.5-5.1)
[2018-05-13 08:04] LABS: CREATININE 10.8 mg/dL (0.6-1.3)
[2018-05-13] MEDS: SEVELAMER CARBONATE 800 MG TABLET PO SCH ×3 (08:59→17:07)
[2018-05-13] MEDS: FOLIC ACID/VITAMIN B COMP W-C TABLET PO SCH (09:00)
[2018-05-13] MEDS: ASPIRIN EC 81 MG TABLET.DR PO SCH (09:00)
[2018-05-13] MEDS: GABAPENTIN 100 MG CAPSULE PO SCH ×2 (09:00→17:07)
[2018-05-13] MEDS: FOLIC ACID 1 MG TABLET PO SCH (09:00)
[2018-05-13] MEDS: hydrALAZINE HCL 50 MG TABLET PO SCH (09:00)
[2018-05-13] MEDS: DOXAZOSIN 1 MG TABLET PO SCH (09:00)
[2018-05-13] MEDS: Z GUARD REMEDY PASTE 57 GM TUBE TOP SCH ×2 (09:05→20:56)
[2018-05-13 11:48] VITALS: BP 154/66
[2018-05-13 15:43] VITALS: BP 146/63
--- NOTE | 2018-05-13 19:16 | NUR ---
PATIENT IS LYING IN BED, ALERT AND ORIENTED. NO SIGNS OF DISTRESS NOTED. NO FLUIDS RUNNING AT THE MOMENT. PATIENT IS ON 2L OF OXYGEN VIA NASAL CANNULA. CDIFF RESULTS NEGATIVE. PT WALKED PATIENT UP TO DOOR, PATIENT TOLERATED. NO BM TODAY.
[2018-05-13 19:20] VITALS: BP 134/59
--- NOTE | 2018-05-13 19:45 | NUR ---
ALERT ORIENTED, NO SOB NO CHEST PAIN, NO COMPLAIN OF PAIN AT THIS TIME. CALL LIGHT WITHIN REACH. CONT TO MONITOR.
[2018-05-13] MEDS: TAMSULOSIN HCL 0.4 MG CAP.SR.24H PO SCH (20:53)
[2018-05-14 03:38] VITALS: BP 137/60
--- NOTE | 2018-05-14 07:34 | NUR ---
patient slept most of the night, no sob no chest pain, kept comfortable, call light within reach.
[2018-05-14] MEDS: GABAPENTIN 100 MG CAPSULE PO SCH ×2 (08:15→16:47)
[2018-05-14] MEDS: ASPIRIN EC 81 MG TABLET.DR PO SCH (08:15)
[2018-05-14] MEDS: SEVELAMER CARBONATE 800 MG TABLET PO SCH ×3 (08:15→17:06)
[2018-05-14] MEDS: hydrALAZINE HCL 50 MG TABLET PO SCH (08:15)
[2018-05-14] MEDS: FOLIC ACID/VITAMIN B COMP W-C TABLET PO SCH (08:15)
[2018-05-14] MEDS: DOXAZOSIN 1 MG TABLET PO SCH (08:15)
[2018-05-14] MEDS: FOLIC ACID 1 MG TABLET PO SCH (08:15)
[2018-05-14] MEDS: Z GUARD REMEDY PASTE 57 GM TUBE TOP SCH (08:16)
[2018-05-14] MEDS ORDERED: CALCIUM CARBONATE 500 MG TAB.CHEW PO PRN (11:00)
[2018-05-14 11:09] VITALS: BP 145/67
[2018-05-14 15:06] VITALS: BP 119/60
--- NOTE | 2018-05-14 18:11 | NUR ---
DIALYSIS DONE 500 ML OUT PT IS IN STABLE CONDITION
--- NOTE | 2018-05-14 19:00 | NUR ---
PATIENT ALERT ORIENTED, NO COMPLAIN OF PAIN, NO SOB NO CHEST PAIN NOTED. L UPPER SHUNT INTACT, NO BLEEDING NOTED, ANURIC AT THIS TIME. NO COMPLAIN OF PAIN AT THIS TIME. CALL LIGHT WITHIN REACH.
[2018-05-14 19:20] VITALS: BP 137/61
[2018-05-14] MEDS: TAMSULOSIN HCL 0.4 MG CAP.SR.24H PO SCH (20:25)
--- NOTE | 2018-05-14 23:16 | NUR ---
PATIENT DISCHARGE TO [facility] VIA AMBULANCE, PATIENT TOOK ALL BELONGINGS INCLUDING ALL HOME MEDICATIONS. LEFT UPPER SHUNT DRESSING INTACT, NO BLEEDING NOTED. NO COMPLAIN OF PAIN. PATIENT OLIGURIC, SO PATIENT SOMETIMES URINE AND SOMETIMES DOES NOT URINE FOR DAYS. REPORT GIVEN TO ALIA RN AOC DIRECTOR COMBAT PLANS OFFICER BY JAYA NURSE, AND I DID FOLLOW UP REPORT ON TERESE BLADDER SCAN DID TO PATIENT WITH 263CC ON BLADDER FOR TWO DAYS OF NOT URINATING. PATIENT ANURIC AT THIS TIME, AFTER INSTRUCTED TO URINATE ON THE URINAL. PATIENT FAIR AND STABLE CONDITION.
== END 2018-05-14 23:28 | DRG 391 ==
LOC: ER 23:25 → TELE 05-11 00:53 → MED 05-12 18:48
PROVIDERS: ADMIT Nurse Practitioner Acute Care; ATTEND Internal Medicine
PROC: 5A1D70Z Performance of Urinary Filtration, Intermittent, Less than 6 Hours Per Day (ICD-10-PCS; principal; 2018-05-11)
DX: K58.0 Irritable bowel syndrome with diarrhea (principal); N18.6 End stage renal disease; I12.0 Hypertensive chronic kidney disease with stage 5 chronic kidney disease or end stage renal disease; D68.59 Other primary thrombophilia; E11.22 Type 2 diabetes mellitus with diabetic chronic kidney disease; Z99.2 Dependence on renal dialysis; Z91.15 Patient's noncompliance with renal dialysis; N40.0 Benign prostatic hyperplasia without lower urinary tract symptoms; Z74.09 Other reduced mobility; E11.42 Type 2 diabetes mellitus with diabetic polyneuropathy; M19.90 Unspecified osteoarthritis, unspecified site; D64.9 Anemia, unspecified; E87.5 Hyperkalemia; E78.5 Hyperlipidemia, unspecified; R19.7 Diarrhea, unspecified; E83.9 Disorder of mineral metabolism, unspecified; Z79.84 Long term (current) use of oral hypoglycemic drugs; Z79.82 Long term (current) use of aspirin; Z98.41 Cataract extraction status, right eye; Z79.899 Other long term (current) drug therapy
CPT/HCPCS: 36415; 70030-TC; 71045; 83690; 83735; 84100; 85025; 85730; 90937; 93005; 97110; 97116; 97530; A4663; G0378; J2405; J3490; J7030; J7050